=== PATIENT | female | born 1935 | race African-American/Black ===

== ENCOUNTER 2016-12-29 14:57 | Emergency (ER) | payer MEDICARE, MEDICAID ==
[~2016-12-29] VITALS: Ht 167.6 cm; Wt 91.0 kg
[~2016-12-29 14:57] MED LIST: AMLO5TAB88 PO; ASPI-1073 PO; ATEN50TA PO; GABA-529 PO; LEVVL SQ; LOVA40TA73 PO; OLME40TA12 PO; OMEP20CA10 PO
[2016-12-29 15:59] LABS: BASOPHILS % 1.1 % (0.0-2.0); EOSINOPHILS % 4.7 % (0.0-5.0); HEMATOCRIT. 37.1 % (36.0-48.0); HEMOGLOBIN. 12.2 g/dL (12.0-16.0); LYMPHOCYTES % 26.5 % (20.0-50.0); MEAN CORPUSCULAR HEMOGLOBIN 29.3 pg (28.0-32.0); MEAN CORPUSCULAR VOLUME 89.5 fL (81.0-99.0); MEAN PLATELET VOLUME 8.9 fl (7.4-10.4); MONOCYTES % 7.7 % (2.0-8.0); PLATELET 257 x1000/uL (130-400); RED BLOOD CELL COUNT 4.15 mill/uL (4.2-5.4); RED CELL DISTRIBUTION WIDTH 13.5 % (11.6-14.6)
[2016-12-29 16:01] LABS: INR 1.1
[2016-12-29 16:10] LABS: CARBON DIOXIDE 29 mEq/L (21-32); CHLORIDE 100 mEq/L (98-107); TROPONIN I < 0.02 ng/mL (0.00-0.04)
[2016-12-29] MEDS ORDERED: IBUPROFEN 400MG TABLET PO ONE (17:45)
[2016-12-29] MEDS ORDERED: ACETAMINOPHEN 650MG/20.3ML UDC PO NR (21:30)
[2016-12-29 22:29] VITALS: BP 159/78
== END 2016-12-29 22:49 | disposition home or self-care (01) ==
LOC: ER 15:11
DX: E87.1 Hypo-osmolality and hyponatremia (principal); I10 Essential (primary) hypertension; R51 Headache; Z91.041 Radiographic dye allergy status; E11.9 Type 2 diabetes mellitus without complications; I51.9 Heart disease, unspecified; Z79.82 Long term (current) use of aspirin; Z79.4 Long term (current) use of insulin; Z79.899 Other long term (current) drug therapy
CPT/HCPCS: 36415; 71010; 80053; 83880; 84484; 85025; 85610; 93005; 99285

== ENCOUNTER 2017-03-14 13:19 | Inpatient (IN) | payer MEDICARE, MEDICAID ==
[~2017-03-14] VITALS: Ht 165.1 cm; Wt 93.4 kg
[2017-03-14] MEDS ORDERED: SODIUM CHLORIDE 0.9% 1,000 ML IV ONE (13:46)
[2017-03-14 14:08] LABS: BASOPHILS % 1.1 % (0.0-2.0); EOSINOPHILS % 6.2 % (0.0-5.0); HEMATOCRIT. 35.2 % (36.0-48.0); HEMOGLOBIN. 11.6 g/dL (12.0-16.0); LYMPHOCYTES % 29.4 % (20.0-50.0); MEAN CORPUSCULAR HEMOGLOBIN 29.4 pg (28.0-32.0); MEAN PLATELET VOLUME 8.9 fl (7.4-10.4); MONOCYTES % 8.9 % (2.0-8.0); NEUTROPHILS % 54.4 % (40.0-76.0); PLATELET 255 x1000/uL (130-400); RED BLOOD CELL COUNT 3.96 mill/uL (4.2-5.4); RED CELL DISTRIBUTION WIDTH 13.1 % (11.6-14.6)
[2017-03-14 14:16] LABS: INR 1.1; PROTHROMBIN TIME 11.1 sec (9.4-11.6)
[2017-03-14 14:18] LABS: CARBON DIOXIDE 24 mEq/L (21-32); CHLORIDE 98 mEq/L (98-107)
[2017-03-14 14:25] LABS: ETHANOL BLOOD < 10 mg/dL; TROPONIN I < 0.02 ng/mL (0.00-0.04)
[2017-03-14 14:59] LABS: CLARITY URINE CLEAR (CLEAR); COLOR URINE YELLOW (YELLOW); GLUCOSE URINE NEGATIVE (NEGATIVE); KETONES URINE NEGATIVE (NEGATIVE); LEUKOCYTE ESTERASE URINE NEGATIVE (NEGATIVE); NITRITE URINE NEGATIVE (NEGATIVE); OCCULT BLOOD URINE NEGATIVE (NEGATIVE); PROTEIN URINE NEGATIVE (NEGATIVE); SPECIFIC GRAVITY URINE 1.012 (1.005-1.030)
[2017-03-14] MEDS ORDERED: IPRATROPIUM BROMIDE (0.02%) 0.5MG/2.5ML NEB HHN STA (15:00)
[2017-03-14] MEDS ORDERED: MAGNESIUM 2 G PREMIX 50 ML IV ONE (15:00)
[2017-03-14] MEDS ORDERED: ALBUTEROL (0.083%) 2.5MG/3ML NEB HHN STA (15:00)
[2017-03-14] MEDS ORDERED: METHYLPREDNISOLONE SOD SUCC 125 MG/2 ML VIAL IV STA (15:00)
[2017-03-14 15:20] LABS: *AMPHETAMINES SCREEN URINE NEGATIVE (NEGATIVE); *BARBITURATES SCREEN URINE NEGATIVE (NEGATIVE); *BENZODIAZEPINES SCREEN URINE NEGATIVE (NEGATIVE); *COCAINE SCREEN URINE NEGATIVE (NEGATIVE); CANNABINOID URINE SCREEN NEGATIVE (NEGATIVE); METHADONE URINE SCREEN NEGATIVE (NEGATIVE); OPIATES URINE SCREEN NEGATIVE (NEGATIVE); PHENCYCLIDINE URINE SCREEN NEGATIVE (NEGATIVE)
[2017-03-14 15:34] LABS: BG BASE EXCESS -1.3 mmol/L (-2.0-2.0); BG CARBOXYHEMOGLOBIN 0.4 % (0.5-1.5); BG FRACTION INSPIRED OXYGEN 21; BG HCO3 ACT 21.2 mmol/L (22.0-26.0); BG METHEMOGLOBIN 0.2 % (0.0-1.5); BG OXYHEMOGLOBIN 97.4 % (94.0-97.0); BG PCO2 29.3 mmHg (35.0-45.0); BG PH 7.478 (7.350-7.450); BG PO2 98.8 mmHg (75.0-100.0); BG SAMPLE SITE RIGHT RADIAL; BG TOTAL HEMOGLOBIN 12.5 g/dL (12.0-18.0); BG VENT MODE ROOM AIR
[2017-03-14 15:46] LABS: CHLORIDE 97 mEq/L (98-107)
[2017-03-14 15:47] LABS: INR 1.1
[2017-03-14 15:54] LABS: CARBON DIOXIDE 23 mEq/L (21-32)
[2017-03-14 21:00] VITALS: BP 159/60
[2017-03-14 21:23] VITALS: BP 156/90
[2017-03-14] MEDS ORDERED: ACETAMINOPHEN 325MG TABLET PO PRN (23:00)
[2017-03-14] MEDS ORDERED: IPRATROPIUM/ALBUTEROL 0.5-3(2.5)MG/3ML NEB INH SCH (23:00)
[2017-03-14] MEDS ORDERED: DEXTROSE 50% WATER 50ML SYRINGE IV PRN (23:00)
[2017-03-15] VITALS: BP 137/50
[2017-03-15] MEDS ORDERED: INSULIN DETEMIR UD 100 UNITS/ML SYR SUBCUT SCH ×2 (01:30→21:00)
[2017-03-15 01:51] LABS: CREATINE KINASE 490 IU/L (26-192); CREATINE KINASE MB FRACTION 3.6 ng/mL (0.5-3.6); TROPONIN I < 0.02 ng/mL (0.00-0.04)
[2017-03-15] MEDS: IPRATROPIUM/ALBUTEROL 0.5-3(2.5)MG/3ML NEB INH SCH ×4 (03:52→17:11)
[2017-03-15] MEDS: CLOTRIMAZOLE 1% CREAM 30GM TOP SCH ×3 (05:12→21:21)
[2017-03-15] MEDS: BLOOD SUGAR DIAGNOSTIC STRIP TEST SCH ×4 (06:02→21:20)
[2017-03-15] MEDS: OMEPRAZOLE 20MG CAPSULE EXTENDED RELEASE PO SCH (06:10)
[2017-03-15 08:41] VITALS: BP 137/50
[2017-03-15] MEDS ORDERED: GABAPENTIN 100MG CAPSULE PO SCH (09:00)
[2017-03-15] MEDS ORDERED: MEDICATION NOT ON FORMULARY EA (Olmesartan Medoxomil (Benicar) 40 MG) PO SCH (09:00)
[2017-03-15] MEDS ORDERED: MEDICATION NOT ON FORMULARY EA (Lovastatin 40 MG) PO SCH (09:00)
[2017-03-15] MEDS ORDERED: LOSARTAN POTASSIUM 100 MG TABLET PO SCH ×2 (09:00→14:00)
[2017-03-15] MEDS ORDERED: AMLODIPINE 5MG TABLET PO SCH ×2 (09:00→14:00)
[2017-03-15] MEDS: ATENOLOL 50 MG TABLET PO SCH (09:07)
[2017-03-15] MEDS: ASPIRIN 81MG EC TABLET PO SCH (09:07)
[2017-03-15] MEDS: INSULIN LISPRO 100 UNITS/ML SUBCUT SCH ×4 (09:08→21:20)
[2017-03-15 09:30] LABS: CARBON DIOXIDE 23 mEq/L (21-32); CHLORIDE 95 mEq/L (98-107); CREATINE KINASE 549 IU/L (26-192); CREATINE KINASE MB FRACTION 3.7 ng/mL (0.5-3.6); TROPONIN I < 0.02 ng/mL (0.00-0.04)
[2017-03-15] MEDS ORDERED: PNEUMOCOCCAL 23-VAL P-SAC VAC 0.5 ML IM ONE (10:00)
[2017-03-15 12:00] VITALS: BP 119/45
[2017-03-15 16:00] VITALS: BP 138/39
[2017-03-15] MEDS: GABAPENTIN 100MG CAPSULE PO SCH ×2 (17:58→21:12)
[2017-03-15] MEDS: AMLODIPINE 5MG TABLET PO SCH (18:03)
[2017-03-15] MEDS: LOSARTAN POTASSIUM 100 MG TABLET PO SCH (18:04)
[2017-03-15 20:00] VITALS: BP 110/50
[2017-03-15] MEDS: ATORVASTATIN CALCIUM 10MG TABLET PO SCH (21:11)
[2017-03-15] MEDS: GUAIFENESIN-DM 200MG-20MG/10ML UDC PO PRN (21:12)
[2017-03-15] MEDS: DOCUSATE SODIUM 250MG CAPSULE PO SCH (21:12)
[2017-03-16] VITALS (7 sets, daily range): BP systolic 109–152; BP diastolic 42–75
[2017-03-16] MEDS: INSULIN DETEMIR UD 100 UNITS/ML SYR SUBCUT SCH ×2 (00:42→22:15)
[2017-03-16] MEDS ORDERED: TRAMADOL 50MG TABLET PO PRN (00:45)
[2017-03-16] MEDS: IPRATROPIUM/ALBUTEROL 0.5-3(2.5)MG/3ML NEB INH SCH ×6 (02:02→20:57)
[2017-03-16] MEDS: GUAIFENESIN-DM 200MG-20MG/10ML UDC PO PRN ×3 (03:02→22:05)
[2017-03-16] MEDS: BLOOD SUGAR DIAGNOSTIC STRIP TEST SCH ×4 (05:55→21:17)
[2017-03-16] MEDS: OMEPRAZOLE 20MG CAPSULE EXTENDED RELEASE PO SCH (05:55)
[2017-03-16] MEDS: CLOTRIMAZOLE 1% CREAM 30GM TOP SCH ×3 (06:00→22:00)
[2017-03-16] MEDS: ASPIRIN 81MG EC TABLET PO SCH (08:01)
[2017-03-16] MEDS: INSULIN LISPRO 100 UNITS/ML SUBCUT SCH ×4 (08:01→22:17)
[2017-03-16] MEDS: GABAPENTIN 100MG CAPSULE PO SCH ×3 (08:01→22:04)
[2017-03-16] MEDS ORDERED: LACTULOSE 20G/30ML UDC PO PRN (08:15)
[2017-03-16] MEDS: ATENOLOL 50 MG TABLET PO SCH (10:02)
[2017-03-16 13:24] LABS: BASOPHILS % 0.9 % (0.0-2.0); EOSINOPHILS % 5.1 % (0.0-5.0); HEMATOCRIT. 32.4 % (36.0-48.0); HEMOGLOBIN. 10.7 g/dL (12.0-16.0); LYMPHOCYTES % 25.6 % (20.0-50.0); MEAN CORPUSCULAR HEMOGLOBIN 29.5 pg (28.0-32.0); MEAN PLATELET VOLUME 9.3 fl (7.4-10.4); MONOCYTES % 9.5 % (2.0-8.0); NEUTROPHILS % 58.9 % (40.0-76.0); PLATELET 253 x1000/uL (130-400); RED BLOOD CELL COUNT 3.64 mill/uL (4.2-5.4); RED CELL DISTRIBUTION WIDTH 13.5 % (11.6-14.6)
[2017-03-16 13:48] LABS: CARBON DIOXIDE 25 mEq/L (21-32); CHLORIDE 96 mEq/L (98-107); HDL CHOLESTEROL 33 mg/dL (40-59); LDL CHOLESTEROL 94 mg/dL (5-100)
[2017-03-16] MEDS: AMLODIPINE 5MG TABLET PO SCH (14:00)
[2017-03-16] MEDS: LOSARTAN POTASSIUM 100 MG TABLET PO SCH (14:00)
[2017-03-16] MEDS: DOCUSATE SODIUM 250MG CAPSULE PO SCH (21:00)
[2017-03-16] MEDS: ATORVASTATIN CALCIUM 10MG TABLET PO SCH (22:04)
[2017-03-17] VITALS: BP 174/80
[2017-03-17] MEDS: IPRATROPIUM/ALBUTEROL 0.5-3(2.5)MG/3ML NEB INH SCH ×4 (00:24→11:10)
[2017-03-17] MEDS ORDERED: CLONIDINE 0.1MG TABLET PO PRN ×2 (02:45→03:30)
[2017-03-17] MEDS ORDERED: AMLODIPINE 5MG TABLET PO NR (02:45)
[2017-03-17 04:00] VITALS: BP 157/64
[2017-03-17] MEDS: CLOTRIMAZOLE 1% CREAM 30GM TOP SCH (06:00)
[2017-03-17] MEDS: BLOOD SUGAR DIAGNOSTIC STRIP TEST SCH ×2 (06:12→12:35)
[2017-03-17] MEDS: GABAPENTIN 100MG CAPSULE PO SCH (06:18)
[2017-03-17] MEDS: INSULIN LISPRO 100 UNITS/ML SUBCUT SCH ×2 (06:27→12:44)
[2017-03-17] MEDS: GUAIFENESIN-DM 200MG-20MG/10ML UDC PO PRN ×2 (06:27→12:44)
[2017-03-17 06:34] LABS: CARBON DIOXIDE 25 mEq/L (21-32); CHLORIDE 99 mEq/L (98-107)
[2017-03-17] MEDS ORDERED: FAMOTIDINE 20MG TABLET PO SCH (06:45)
[2017-03-17 08:00] VITALS: BP 142/55
[2017-03-17] MEDS ORDERED: SODIUM POLYSTYRENE SULFONATE 15 G/60 ML BOT PO NR ×2 (08:15→08:45)
[2017-03-17] MEDS: ASPIRIN 81MG EC TABLET PO SCH (08:19)
[2017-03-17] MEDS: ATENOLOL 50 MG TABLET PO SCH (08:24)
[2017-03-17] MEDS ORDERED: SODIUM POLYSTYRENE SULFONATE 15 G/60 ML BOT PO ONE (08:30)
[2017-03-17] MEDS ORDERED: AMLODIPINE 5MG TABLET PO SCH (09:00)
[2017-03-17 11:50] LABS: CARBON DIOXIDE 25 mEq/L (21-32); CHLORIDE 98 mEq/L (98-107)
[2017-03-17 13:15] VITALS: BP 140/67
== END 2017-03-17 14:25 | disposition home or self-care (01) | DRG 189 ==
LOC: ER 13:38 → 5WST 16:56 → ENRESERV 19:40
PROVIDERS: ADMIT Internal Medicine; ATTEND Internal Medicine
DX: J96.20 Acute and chronic respiratory failure, unspecified whether with hypoxia or hypercapnia (principal); N17.0 Acute kidney failure with tubular necrosis; J44.0 Chronic obstructive pulmonary disease with (acute) lower respiratory infection; J44.1 Chronic obstructive pulmonary disease with (acute) exacerbation; E87.1 Hypo-osmolality and hyponatremia; I11.0 Hypertensive heart disease with heart failure; I50.9 Heart failure, unspecified; E11.65 Type 2 diabetes mellitus with hyperglycemia; J20.9 Acute bronchitis, unspecified; D64.9 Anemia, unspecified; E87.5 Hyperkalemia; F17.200 Nicotine dependence, unspecified, uncomplicated; M17.0 Bilateral primary osteoarthritis of knee; M51.36 Other intervertebral disc degeneration, lumbar region; Z79.4 Long term (current) use of insulin; Z79.82 Long term (current) use of aspirin; Z79.899 Other long term (current) drug therapy; Z87.01 Personal history of pneumonia (recurrent); Z91.041 Radiographic dye allergy status
CPT/HCPCS: 36415; 36600; 71010; 72110; 73565; 80048; 80053; 80061; 80305; 81003; 82375; 82533; 82550; 82553; 82805; 82962; 83036; 83880; 83930; 84443; 84484; 85025; 85610; 90732; 93005; 93306; 93923; 94640; 96365; 96366; 96375; 99285; G0482; J1815; J2930; J3475; J7030; J7611; J7620

== ENCOUNTER 2018-08-12 20:41 | Inpatient (IN) | payer MEDICARE, MEDICAID ==
[~2018-08-12] VITALS: Ht 166.4 cm; Wt 91.6 kg
[~2018-08-12 20:41] MED LIST changes: +OLME40TA11 PO; -OLME40TA12 PO
[2018-08-12 22:48] LABS: BASOPHILS % 1.1 % (0.0-2.0); EOSINOPHILS % 4.6 % (0.0-5.0); HEMATOCRIT. 39.5 % (36.0-48.0); HEMOGLOBIN. 12.9 g/dL (12.0-16.0); LYMPHOCYTES % 33.4 % (20.0-50.0); MEAN CORPUSCULAR HEMOGLOBIN 29.5 pg (28.0-32.0); MEAN CORPUSCULAR VOLUME 90.7 fL (81.0-99.0); MEAN PLATELET VOLUME 8.8 fl (7.4-10.4); MONOCYTES % 7.6 % (2.0-8.0); NEUTROPHILS % 53.3 % (40.0-76.0); PLATELET 323 x1000/uL (130-400); RED BLOOD CELL COUNT 4.36 mill/uL (4.2-5.4); RED CELL DISTRIBUTION WIDTH 13.3 % (11.6-14.6)
[2018-08-12 22:50] LABS: CHLORIDE 99 mEq/L (98-107)
[2018-08-12] MEDS ORDERED: ASPIRIN 81MG TABLET PO SCH (23:15)
[2018-08-13 16:00] VITALS: BP 164/62
[2018-08-13 16:48] VITALS: BP 164/62
[2018-08-13] MEDS ORDERED: ATOR10TA MT (17:53)
[2018-08-13] MEDS ORDERED: INSU100C6 SQ (17:55)
[2018-08-13] MEDS ORDERED: DOCUSATE SODIUM 100MG CAPSULE PO PRN (18:15)
[2018-08-13] MEDS ORDERED: CLONIDINE 0.1MG TABLET PO PRN (18:15)
[2018-08-13] MEDS ORDERED: ONDANSETRON HCL 4MG/2ML INJ IV PRN (18:15)
[2018-08-13] MEDS ORDERED: ACETAMINOPHEN 325MG TABLET PO PRN (18:15)
[2018-08-13] MEDS ORDERED: HYDROCODONE/ACETAMINOPHEN 5/325MG TABLET PO PRN (18:15)
[2018-08-13] MEDS ORDERED: AMLODIPINE 5MG TABLET PO SCH (18:30)
[2018-08-13] MEDS: ATENOLOL 50 MG TABLET PO SCH (18:54)
[2018-08-13] MEDS: ENOXAPARIN 30MG/0.3ML SYR SUBCUT SCH (18:54)
[2018-08-13] MEDS: ASPIRIN 81MG TABLET PO SCH (18:55)
[2018-08-13] MEDS: GABAPENTIN 100MG CAPSULE PO SCH (19:54)
[2018-08-13] MEDS: ATORVASTATIN CALCIUM 20MG TABLET PO SCH (19:54)
[2018-08-13 20:00] VITALS: BP 129/40
[2018-08-13] MEDS: INSULIN GLARGINE UD 100 UNITS/ML SYR SUBCUT SCH (21:30)
[2018-08-13] MEDS ORDERED: DEXTROSE 50% WATER 50ML SYRINGE IV PRN ×3 (21:45)
[2018-08-14] VITALS: BP 150/48
[2018-08-14 04:00] VITALS: BP 140/54
[2018-08-14] MEDS: GABAPENTIN 100MG CAPSULE PO SCH ×3 (04:39→21:25)
[2018-08-14] MEDS: BLOOD SUGAR DIAGNOSTIC STRIP TEST SCH ×4 (05:10→21:30)
[2018-08-14] MEDS: INSULIN LISPRO 100 UNITS/ML SUBCUT SCH ×4 (05:23→16:45)
[2018-08-14] MEDS ORDERED: OMEPRAZOLE 20MG CAPSULE EXTENDED RELEASE PO SCH (06:45)
[2018-08-14] MEDS ORDERED: BLOOD SUGAR DIAGNOSTIC STRIP TEST SCH ×2 (06:45)
[2018-08-14 07:16] LABS: EOSINOPHILS % 6.3 % (0.0-5.0); HEMATOCRIT. 38.7 % (36.0-48.0); HEMOGLOBIN. 12.5 g/dL (12.0-16.0); LYMPHOCYTES % 35.9 % (20.0-50.0); MEAN CORPUSCULAR HEMOGLOBIN 29.1 pg (28.0-32.0); MEAN CORPUSCULAR VOLUME 90.2 fL (81.0-99.0); MONOCYTES % 10.8 % (2.0-8.0); PLATELET 261 x1000/uL (130-400); RED CELL DISTRIBUTION WIDTH 13.3 % (11.6-14.6)
[2018-08-14 07:48] LABS: CHLORIDE 101 mEq/L (98-107)
[2018-08-14 08:00] VITALS: BP 154/55
[2018-08-14 08:00] LABS: T4 FREE 1.04 ng/dL (0.76-1.46)
[2018-08-14] MEDS ORDERED: MEDICATION NOT ON FORMULARY EA (Atenolol 50 MG) PO SCH (09:00)
[2018-08-14] MEDS ORDERED: MEDICATION NOT ON FORMULARY EA (Lovastatin 40 MG) PO SCH (09:00)
[2018-08-14] MEDS ORDERED: ASPIRIN 81 MG PO SCH (09:00)
[2018-08-14] MEDS ORDERED: MEDICATION NOT ON FORMULARY EA (Gabapentin 100 MG) PO SCH (09:00)
[2018-08-14] MEDS: ASPIRIN 81MG TABLET PO SCH (09:45)
[2018-08-14] MEDS: ATENOLOL 50 MG TABLET PO SCH (09:45)
[2018-08-14] MEDS: AMLODIPINE 5MG TABLET PO SCH (09:46)
[2018-08-14] MEDS: LOSARTAN POTASSIUM 100 MG TABLET PO SCH (09:57)
[2018-08-14 12:00] VITALS: BP 141/50
[2018-08-14 16:00] VITALS: BP 131/61
[2018-08-14] MEDS: ENOXAPARIN 30MG/0.3ML SYR SUBCUT SCH (17:37)
[2018-08-14 20:00] VITALS: BP 136/42
[2018-08-14] MEDS ORDERED: DOCUSATE SODIUM 250MG CAPSULE PO SCH (21:00)
[2018-08-14] MEDS: ATORVASTATIN CALCIUM 20MG TABLET PO SCH (21:25)
[2018-08-14] MEDS: OMEPRAZOLE 20MG CAPSULE EXTENDED RELEASE PO SCH (21:29)
[2018-08-14] MEDS: INSULIN GLARGINE UD 100 UNITS/ML SYR SUBCUT SCH (21:44)
[2018-08-15] VITALS: BP 135/59
[2018-08-15 04:00] VITALS: BP 100/58
[2018-08-15] MEDS: GABAPENTIN 100MG CAPSULE PO SCH (05:47)
[2018-08-15] MEDS: OMEPRAZOLE 20MG CAPSULE EXTENDED RELEASE PO SCH (05:48)
[2018-08-15] MEDS: BLOOD SUGAR DIAGNOSTIC STRIP TEST SCH (05:52)
[2018-08-15 06:44] VITALS: BP 119/60
[2018-08-15] MEDS: INSULIN LISPRO 100 UNITS/ML SUBCUT SCH (06:45)
[2018-08-15 08:00] VITALS: BP 158/59
[2018-08-15] MEDS: ATENOLOL 50 MG TABLET PO SCH (10:06)
[2018-08-15] MEDS: LOSARTAN POTASSIUM 100 MG TABLET PO SCH (10:06)
[2018-08-15] MEDS: ASPIRIN 81MG TABLET PO SCH (10:06)
[2018-08-15] MEDS: AMLODIPINE 5MG TABLET PO SCH (10:07)
[2018-08-15 12:00] VITALS: BP 138/65
[2018-08-15 13:03] VITALS: BP 138/65
== END 2018-08-15 13:30 | disposition home or self-care (01) | DRG 206 ==
LOC: ER 20:41 → 5WST 23:16 → EDBEDREQ 23:19 → EDBEDREQTM 23:19 → ENRESERV 08-13 13:06
PROVIDERS: ADMIT Internal Medicine; ATTEND Internal Medicine
DX: M94.0 Chondrocostal junction syndrome [Tietze] (principal); E11.9 Type 2 diabetes mellitus without complications; E78.5 Hyperlipidemia, unspecified; I11.0 Hypertensive heart disease with heart failure; I50.9 Heart failure, unspecified; E11.40 Type 2 diabetes mellitus with diabetic neuropathy, unspecified; I25.10 Atherosclerotic heart disease of native coronary artery without angina pectoris; I25.2 Old myocardial infarction; K21.9 Gastro-esophageal reflux disease without esophagitis; Z79.4 Long term (current) use of insulin; Z79.899 Other long term (current) drug therapy; Z79.82 Long term (current) use of aspirin; Z91.041 Radiographic dye allergy status
CPT/HCPCS: 36415; 71045; 74018; 80048; 82962; 83036; 83880; 84439; 84443; 84484; 93005; 93306; 93880; 93970; 97162; 97535; 99285; J1650; J1815

== ENCOUNTER 2023-02-22 19:24 | Emergency (ER) | payer MEDICARE, MEDICAID ==
[~2023-02-22] VITALS: Ht 172.7 cm; Wt 74.0 kg
[~2023-02-22 19:24] MED LIST changes: +HYDR-4134 PO; +INSU100C6 SQ; -OLME40TA11 PO; -OMEP20CA10 PO; +OMEP20CA14 PO
[2023-02-22 19:25] VITALS: TEMP 98.7; O2SAT 97
[2023-02-22] MEDS ORDERED: SODIUM CHLORIDE 0.9% 1,000 ML IV ONE (20:15)
[2023-02-22 20:40] LABS: BASOPHILS % 0.6 % (0.0-2.0); EOSINOPHILS % 6.4 % (0.0-5.0); HEMATOCRIT. 31.4 % (36.0-48.0); HEMOGLOBIN. 10.2 g/dL (12.0-16.0); LYMPHOCYTES % 21.9 % (20.0-50.0); MEAN CORPUSCULAR HEMOGLOBIN 28.9 pg (28.0-32.0); MONOCYTES % 9.2 % (2.0-8.0); NEUTROPHILS % 61.9 % (40.0-76.0); PLATELET 349 x1000/uL (130-400); RED BLOOD CELL COUNT 3.53 mill/uL (4.2-5.4); RED CELL DISTRIBUTION WIDTH 13.1 % (11.6-14.6)
[2023-02-22 20:43] LABS: CHLORIDE 100 mEq/L (98-107)
[2023-02-22] MEDS ORDERED: TRAM50TA3 MT (21:51)
[2023-02-22] MEDS ORDERED: TRAMADOL 50MG TABLET PO ONE (22:00)
[2023-02-22 23:36] VITALS: BP 148/57; PULSE 68; RESP 14
== END 2023-02-22 23:38 | disposition home or self-care (01) ==
LOC: ER 19:24
DX: M17.11 Unilateral primary osteoarthritis, right knee (principal); E11.65 Type 2 diabetes mellitus with hyperglycemia; N28.9 Disorder of kidney and ureter, unspecified; D64.9 Anemia, unspecified; I10 Essential (primary) hypertension; E11.9 Type 2 diabetes mellitus without complications; Z91.041 Radiographic dye allergy status; Z79.899 Other long term (current) drug therapy
CPT/HCPCS: 99284; 71045; 80053; 82962; 83880; 85025; 84484; 36415; 73562; 73590; J7030; A4315